=== PATIENT | female | born 1990 | race Caucasian/White ===

== ENCOUNTER → 2018-04-28 | Outpatient (CLI) | payer BC ==
[2018-04-28 14:34] LABS: BASO % 0.3 %; BASO ABS # 0.03 K/uL (0-0.2); EOS % 2.5 %; EOS ABS # 0.23 K/uL (0-0.5); HEMATOCRIT 37.1 % (37-47); HEMOGLOBIN 12.5 g/dL (12.0-16.0); IG# 0.02 K/uL (0.00-0.02); LYMPH % 21.4 %; LYMPH ABS # 1.98 K/uL (1.2-3.4); MEAN CELL VOLUME 81.2 fL (80-100); MEAN CORPUSCULAR HEMOGLOBIN 27.4 pg (25-34); MEAN CORPUSCULAR HGB CONC 33.7 g/dl (32-36); MEAN PLATELET VOLUME 9.3 fL (7.4-10.4); MONO ABS # 0.74 K/uL (0.11-0.59); NEUT % 67.6 %; NEUT ABS # 6.26 K/uL (1.4-6.5); PLATELET COUNT 378 K/uL (130-400); RED CELL DISTRIBUTION WIDTH CV 12.8 % (11.5-14.5); RED CELL DISTRIBUTION WIDTH SD 37.9 fL (36.4-46.3); WHITE BLOOD COUNT 9.26 K/uL (4.8-10.8)
== END | disposition home or self-care (01) ==
LOC: C.LAB1850 12:38
PROVIDERS: ATTEND Obstetrics & Gynecology
DX: Z34.02 Encounter for supervision of normal first pregnancy, second trimester (principal)

== ENCOUNTER → 2018-04-28 | Outpatient (CLI) | payer BC | END | disposition home or self-care (01) | LOC: C.PAPS 14:43 | PROVIDERS: ATTEND Obstetrics & Gynecology | DX: Z34.01 Encounter for supervision of normal first pregnancy, first trimester (principal) ==

== ENCOUNTER → 2018-05-14 | Outpatient (CLI) | payer BC | END | disposition home or self-care (01) | LOC: C.LAB1850 15:04 | PROVIDERS: ATTEND Internal Medicine | DX: O02.1 Missed abortion (principal) ==

== ENCOUNTER → 2018-05-14 | Outpatient (CLI) | payer BC | END | disposition home or self-care (01) | LOC: C.PATHSPEC 17:37 | PROVIDERS: ATTEND Obstetrics & Gynecology | DX: O02.1 Missed abortion (principal) ==

== ENCOUNTER 2022-06-11 | Inpatient (IN) ==
[2022-06-11] MEDS ORDERED: OXYTOCIN 30 UNITS/500 ML BAG IV PRN ×2 (08:20)
[2022-06-11] MEDS ORDERED: LIDOCAINE 1% LOCAL 20 ML VIAL INFIL PRN (08:20)
--- NOTE | 2022-06-11 08:29 | History & Physical Report ---
Date of Service June 11, 2022 Assessment & Plan (1) Encounter for induction of labor: Plan: -admit, iv, labs. plan pitocin. fhts categ 1. -Previously elevated BP at last appointment. BP stable on admission. Will order CMP -Rubella equivocal, will get MMR . (2) Post term over 40 weeks: (3) Prior miscarriage with , antepartum: Admission and Anticipated Discharge Date Admission Date: June 11, 2022 History of Present Illness Chief Complaint: induction of labor Primary Care Provider: VLADIMIR PCP 32 y/o 40 weeks confirmed via ultrasound. Presents to L&D with cc of planned induction. Has been attending OB appointments regularly. Was not scheduled for one yesterday. Currently taking ferrous sulfate a vitamin. Contractions: none. Fluid or Blood loss: none Movement: active Labs O+ Blood type - Antibody screen Rubella equivocal - VDRL/RPR - Gonorrhea - Chlamydia (previous + in 2017) - HIV - HbSAg - GBS - Glucose tolerance x 2 Allergies Allergy/AdvReac Type Severity Reaction Status Date / Time No Known Allergies Allergy Verified 06/11/22 08:25 Home Medications Medication Instructions Recorded Confirmed Type prenat.vits,mae,rwx-euil-yjoww 1 tab PO DAILY 11/25/21 06/11/22 History ferrous sulfate 325 mg (65 mg 325 mg PO DAILY 06/06/22 06/11/22 History iron) tablet Zyrtec 1 tab PO DAILY 06/11/22 06/11/22 History Patient History Medical History (Updated 06/11/22 @ 08:47 by Marko Salguero DO) Arthritis in back Chlamydia Depression Varicella vaccination Surgical History No history of previous surgery Family History Grandmother (Maternal) Breast cancer Mother Hypertension Denies family history of Ovarian cancer Colorectal cancer Social History Smoking Status: Former smoker Hx Alcohol Use: No Hx Substance Use: No Preferred Language: Uzbek Bss Solution Architect Required: No Beliefs That Will Affect Care: None marital status: Single marital status details: eron Lucas (30) Current Living Situation: Parent Current Living Situation Comment: lives with mom, dog, cats-wears gloves/mask current occupational status: employed current occupation: [employer] Feels Safe at Home: Yes Safety Concerns: Feels Safe At This Time Review of Systems Denies fever, chills, sweats Denies shortness of breath, difficulty breathing, chest pain, palpitations, chest pressure. Denies breast pain. Denies dysuria. Denies headache or changes in vision. Physical Exam Physical Exam: General: Alert, oriented. No acute distress. Cardiac: Regular rate and rhythm, no murmurs/rubs/gallops. Respiratory: Clear to auscultation bilaterally a/p, no wheezes/rales/rhonchi. No increased work of breathing. Symmetrical chest rise. No respiratory distress. Abdomen: Gravid; FH 40cm Pelvic: Dilation 0.5cm; Effacement 50; Station -[address] Arora Lower Extremities: No lower extremity edema or swelling. No deep calf pain. Sharmin's negative bilaterally Results & Data ([facility]) Vital Signs (Past 12 Hours) Vital Signs Pulse BP 06/11/22 07:57 101 H 133/89 Supervising Physician Co-Signing Physician Notes patient is seen and evaluated groove above findings and plan. Resident Activity Tracking Resident Involvement: Resident Care Provided Care Provided: OB Delivery
[2022-06-11 08:40] LABS: Hematocrit (blood only) 37.8 % (34.1-44.9); Hemoglobin 13.1 g/dl (12.0-16.0); Mean Corpuscular Hemoglobin 29.2 pg (25.0-34.0); Mean Corpuscular Hgb Conc 34.7 g/dL (32.0-36.0); Mean Corpuscular Volume 84.4 fL (80.0-100.0); Mean Platelet Volume 10.6 fL (9.4-12.3); Platelet Count 265 K/uL (130-400); RDW Coefficient of Variation 14.5 % (11.5-14.5); Red Blood Count 4.48 M/uL (3.93-5.22); White Blood Count 10.99 K/ul (4.8-10.8)
[2022-06-11] MEDS: LACTATED RINGER'S 1,000 ML IV PRN ×4 (09:00→23:33)
[2022-06-11 09:10] LABS: Anion Gap 9 (3-11); BUN Creatinine Ratio 14.8 (10-20); Blood Urea Nitrogen 12 mg/dl (6-23); Calcium 9.7 mg/dl (8.5-10.1); Carbon Dioxide 23 mmol/L (21-32); Chloride 101 mmol/L (98-107); Est GFR (African American) 110.6 ml/min; Est GFR (Non-African American) 95.4 ml/min; Glucose 74 mg/dl (70-99(Fasting)); Potassium 3.8 mmol/L (3.5-5.1); Sodium 133 mmol/L (136-145)
[2022-06-11 09:21] LABS: Alanine Aminotransferase 132 U/L (7-52); Albumin Globulin Ratio 1.2 (0.9-2); Albumin Level 3.7 gm/dl (3.4-5.0); Aspartate Aminotransferase 101 U/L (13-39); Bilirubin,Total 0.4 mg/dl (0.2-1.0); Total Protein 6.7 gm/dl (6.0-8.3)
[2022-06-11 09:33] LABS: Alkaline Phosphatase 148 U/L (34-104)
[2022-06-11] MEDS ORDERED: CALCIUM CARBONATE 500 MG CHEWABLE TAB PO PRN (13:00)
[2022-06-11] MEDS ORDERED: ONDANSETRON INJ 2 MG/ML 2 ML VIAL IV PRN ×2 (13:00→13:20)
[2022-06-11] MEDS ORDERED: FAMOTIDINE 20 MG in SYRINGE 3 ML IV ONE (13:01)
[2022-06-11] MEDS ORDERED: MAG SULFATE 6GM BOLUS FROM BAG IV ONE (13:02)
[2022-06-11] MEDS ORDERED: SODIUM CHLORIDE 0.9% INJ 10 ML VIAL ONE (13:13)
[2022-06-11] MEDS ORDERED: fentaNYL citrate 100 MCG/2 ML VIAL ONE (13:13)
[2022-06-11] MEDS ORDERED: ePHEDrine sulfate 50 MG/ML AMP ONE (13:13)
[2022-06-11] MEDS ORDERED: fentaNYL 2MCG/ML ROPIVACAINE 1.25MG/ML 100 ML BAG EPI ONE (13:14)
[2022-06-11] MEDS ORDERED: LIDOCAINE 2%/EPINEPHRINE 1:200,000 20 ML SDV ONE (13:14)
[2022-06-11] MEDS ORDERED: BUPIVACAINE 0.25% 30 ML VIAL ONE (13:14)
--- NOTE | 2022-06-11 13:15 | Labor Progress Brief Note ---
Date of Service June 11, 2022 Subjective Reason For Note: Routine Evaluation patient denying any preeclampsia symptoms Assessment & Plan (1) Encounter for induction of labor: Plan: patient doing well. denies preeclampsia symptoms. Blood pressure is noted to be elevated in the upper limit of the mild range. Liver enzymes are mildly elevated and patient would meet criteria for severe preeclampsia. Discussed diagnosis with patient today discussed the recommendation for magnesium for seizure prophylaxis. Will continue to monitor blood pressures for and treat as indicated. Patient progressed well Labor and will proceed with epidural. Category 1 tracing noted (2) Post term over 40 weeks: (3) Prior miscarriage with , antepartum: (4) Severe pre-eclampsia: Admission and Anticipated Discharge Date Admission Date: June 11, 2022 Physical Exam Genitourinary: Manual OB Exam: + cervical dilation (4.5), + cervical effacement 80%, + station -1 and + amniotic fluid meconium OB Exam Monitor Tracing: + external FHT monitor used, + external uterine monitor used, + category I and + normal FHT variability; no late decelerations present and no variable decelerations Results & Data ([facility]) Vital Signs (Past 12 Hours) Vital Signs Temp Pulse Resp BP 06/11/22 08:35 36.7 C 101 H 18 133/89 06/11/22 12:54 66 158/86 H 06/11/22 12:47 84 154/93 H 06/11/22 12:36 67 162/96 H 06/11/22 11:32 18 06/11/22 11:32 37.3 C 18 06/11/22 11:33 75 140/91 06/11/22 11:00 68 124/70 06/11/22 10:06 18 06/11/22 10:06 37.3 C 18 06/11/22 07:56 18 06/11/22 07:56 36.9 C 18 06/11/22 09:00 18 06/11/22 09:00 37.1 C 18 06/11/22 10:07 75 129/78 06/11/22 07:57 101 H 133/89 Coding Level of Care Code None Diagnoses Encounter for induction of labor Z34.90 Post term over 40 weeks O48.0 Prior miscarriage with , antepartum O09.299 Severe pre-eclampsia O14.10
[2022-06-11] MEDS ORDERED: NALOXONE HCL 0.4 MG/1 ML VIAL/CARP IV PRN (13:20)
[2022-06-11] MEDS ORDERED: NALBUPHINE HCL INJ 10 MG/ML AMP IV PRN (13:20)
[2022-06-11] MEDS ORDERED: ePHEDrine sulfate 50 MG/ML AMP IV PRN (13:20)
[2022-06-11] MEDS ORDERED: diphenhydrAMINE 50 MG/ML VIAL IV PRN (13:20)
[2022-06-11] MEDS ORDERED: NALOXONE HCL 1 MG in SODIUM CHLORIDE 0.9% 1000ML 1,000 ML IV PRN (13:20)
--- NOTE | 2022-06-11 13:22 | Anesthesiology Consultation ---
Date of Service June 11, 2022 Assessment & Plan ASA ASA3 Proposed Anesthesia Anesthesia Type: Labor Epidural Risk / Benefits Reviewed With: PT / POA / Parent / Guardian, Accepts Plan and Informed Consent Obtained Additional Comments: preeclampcia on mag History Height/Weight Height: 5 ft 5 in Weight: 102.512 kg Allergies Allergy/AdvReac Type Severity Reaction Status Date / Time No Known Allergies Allergy Verified 06/11/22 08:25 Medications Home Medications Medication Instructions Recorded Confirmed Last Taken prenat.vits,mae,tuj-nfqm-qipcp 1 tab PO DAILY 11/25/21 06/11/22 06/11/22 06:00 ferrous sulfate 325 mg (65 mg 325 mg PO DAILY 06/06/22 06/11/22 06/10/22 21:00 iron) tablet Zyrtec 1 tab PO DAILY 06/11/22 06/11/22 06/10/22 21:00 Active Medications Generic Name Dose Route Start Last Admin Trade Name Freq PRN Reason Stop Dose Admin Calcium Carbonate 1,500 mg 06/11/22 13:00 06/11/22 13:20 Calcium Carbonate 500 Mg Chewable Tab PO 07/11/22 12:59 1,500 mg BID PRN Administration Indigestion Lactated Ringer's 1,000 mls @ 125 mls/hr 06/11/22 08:20 06/11/22 09:00 Lr IV 06/13/22 08:19 125 mls/hr .Q8H PRN Administration L&D Protocol Protocol Oxytocin 30 units in 500 mls @ 16 mls/hr 06/11/22 08:20 06/11/22 13:00 Pitocin IV 06/13/22 08:19 0.96 units/hr .Q24H PRN 16 mls/hr Labor Induction/Augmentation Titration Protocol 0.96 UNITS/HR Magnesium Sulfate 40 gm in 1,000 mls @ 50 mls/hr 06/11/22 13:15 06/11/22 13:50 Magnesium Sulfate / Wtr IV 07/11/22 13:14 50 mls/hr .Q20H MISAEL Administration Ondansetron HCl 4 mg 06/11/22 13:00 06/11/22 13:23 Ondansetron Inj 2 Mg/Ml 2 Ml Vial IV 07/11/22 12:59 4 mg Q4H PRN Administration Nausea Past Medical History Medical History (Updated 06/11/22 @ 13:15 by Shaka Nath MD) Arthritis in back Chlamydia Depression Varicella vaccination Exercise / Class Metabolic Activity II 4-5 Yardwork/Stairs/Walk up hill Past Family History Family History Grandmother (Maternal) Breast cancer Mother Hypertension Denies family history of Ovarian cancer Colorectal cancer Past Surgical History Surgical History No history of previous surgery Past Anesthesia History No Hx of Anesthesia Complications and No Family Hx of Anesthesia Complications History of PONV No Hx of PONV and No Hx of Motion Sickness Social History Smoking Status: Former smoker Hx Alcohol Use: No Hx Substance Use: No substance use type: does not use Review of Systems denies fever/cough/ colds/ chest pain/ SOB/ EVERARDO denies EVERARDO Physical Exam Vital Signs Last Vital Signs Temp 37.3 C 06/11/22 11:32 Pulse 92 H 06/11/22 13:52 Resp 18 06/11/22 11:32 BP 99/53 L 06/11/22 13:50 Pulse Ox 97 06/11/22 13:52 ENMT Mouth: no TMJ abnormality and no dentition abnormality Thyromental Distance: > or= 3.5 Finger Breadths Mallampati Class: II Neck neck extension not limited Respiratory normal respiratory effort; no respiratory distress Auscultation: lungs clear to auscultation bilaterally Cardiovascular Rate/Rhythm: regular rate and regular rhythm Neurologic moves all extremities Psychiatric Orientation: alert and oriented x 3 Testing Laboratory Results 06/11/22 08:27 06/11/22 08:27
[2022-06-11] MEDS: MAGNESIUM SULFATE / WTR 40 GM/1,000 ML BAG IV SCH (13:50)
--- NOTE | 2022-06-11 16:13 | Labor Progress Brief Note ---
Date of Service June 11, 2022 Subjective Presented to bedside for evaluation secondary recurrent late deceleration. good variability still noted. multiple resuscitation measures have been implemented including repositioning, decreasing Pitocin and IV fluid bolus. Continued late decelerations still noted. Assessment & Plan (1) Severe pre-eclampsia: Plan: recurrent late decelerations noted with minimal cervical change. moderate heart rate variability noted. Other resuscitation measures unsuccessful. Discontinued Pitocin and will continue to monitor. (2) Encounter for induction of labor: (3) Post term over 40 weeks: Admission and Anticipated Discharge Date Admission Date: June 11, 2022 Physical Exam Genitourinary: Manual OB Exam: + cervical dilation 5 cm, + cervical effacement 80%, + station -1 and + amniotic fluid meconium OB Exam Monitor Tracing: + external FHT monitor used, + external uterine monitor used, + category II, + normal FHT variability and + late decelerations present Results & Data ([facility]) Vital Signs (Past 12 Hours) Vital Signs Temp Pulse Resp BP Pulse Ox 06/11/22 15:20 16 06/11/22 14:20 16 06/11/22 13:20 18 06/11/22 08:35 36.7 C 101 H 18 133/89 06/11/22 15:59 79 140/88 06/11/22 15:57 90 99 06/11/22 15:56 111 H 92 06/11/22 15:52 86 98 06/11/22 15:47 80 99 06/11/22 15:44 86 137/72 06/11/22 15:42 83 99 06/11/22 15:37 86 99 06/11/22 15:32 86 99 06/11/22 15:29 78 140/71 06/11/22 15:27 86 99 06/11/22 15:22 84 99 06/11/22 15:17 92 H 99 06/11/22 15:14 102 H 122/56 L 06/11/22 15:12 109 H 99 06/11/22 15:07 98 H 99 06/11/22 15:02 103 H 99 06/11/22 14:59 101 H 139/81 06/11/22 14:57 105 H 100 06/11/22 14:52 107 H 100 06/11/22 14:47 103 H 100 06/11/22 14:45 96 H 134/75 06/11/22 14:42 92 H 96 06/11/22 14:37 101 H 97 06/11/22 14:32 102 H 99 06/11/22 14:28 88 110/59 L 06/11/22 14:27 89 96 06/11/22 14:25 90 103/58 L 06/11/22 14:22 89 95 06/11/22 14:21 86 106/57 L 06/11/22 14:20 83 94 06/11/22 14:17 95 H 97 06/11/22 14:16 37.3 C 93 H 16 109/58 L 06/11/22 14:12 97 H 98 06/11/22 14:11 90 106/59 L 06/11/22 14:07 89 115/57 L 96 06/11/22 14:02 98 06/11/22 14:02 90 06/11/22 14:02 93 H 123/62 06/11/22 13:58 82 94 06/11/22 13:57 95 06/11/22 13:57 83 06/11/22 13:57 85 112/58 L 06/11/22 13:52 92 H 97 06/11/22 13:50 86 99/53 L 06/11/22 13:49 87 101/53 L 06/11/22 13:47 87 98/54 L 98 06/11/22 13:48 82 98/50 L 06/11/22 13:42 102 H 97 06/11/22 13:39 103 H 91/54 L 06/11/22 13:37 94 H 97 06/11/22 13:36 101 H 132/74 06/11/22 13:32 99 H 97 06/11/22 13:30 99 H 117/75 06/11/22 13:27 109 H 99 06/11/22 12:54 66 158/86 H 06/11/22 12:47 84 154/93 H 06/11/22 12:36 67 162/96 H 06/11/22 11:32 18 06/11/22 11:32 37.3 C 18 06/11/22 11:33 75 140/91 06/11/22 11:00 68 124/70 06/11/22 10:06 18 06/11/22 10:06 37.3 C 18 06/11/22 07:56 18 06/11/22 07:56 36.9 C 06/11/22 09:00 18 06/11/22 09:00 37.1 C 06/11/22 10:07 75 129/78 06/11/22 07:57 101 H 133/89 Coding Level of Care Code None Diagnoses Severe pre-eclampsia O14.10 Encounter for induction of labor Z34.90 Post term over 40 weeks O48.0
[2022-06-11] MEDS ORDERED: LABETALOL HCL IV 5 MG/ML 20ML IV STA (17:56)
[2022-06-11 18:21] LABS: Hematocrit (blood only) 40.4 % (34.1-44.9); Hemoglobin 13.7 g/dl (12.0-16.0); Mean Corpuscular Hemoglobin 28.7 pg (25.0-34.0); Mean Corpuscular Hgb Conc 33.9 g/dL (32.0-36.0); Mean Corpuscular Volume 84.7 fL (80.0-100.0); Mean Platelet Volume 10.6 fL (9.4-12.3); Platelet Count 284 K/uL (130-400); RDW Coefficient of Variation 14.4 % (11.5-14.5); Red Blood Count 4.77 M/uL (3.93-5.22); White Blood Count 18.88 K/ul (4.8-10.8)
[2022-06-11 18:47] LABS: Albumin Globulin Ratio 1.2 (0.9-2); Albumin Level 3.7 gm/dl (3.4-5.0); BUN Creatinine Ratio 13.5 (10-20); Bilirubin,Total 0.5 mg/dl (0.2-1.0); Calcium 9.4 mg/dl (8.5-10.1); Creatinine Clr Calc Pharmacy 106.7 ml/min; Est GFR (African American) 98.7 ml/min; Est GFR (Non-African American) 85.2 ml/min; Globulin 3.2 gm/dl (2.5-4.0); Magnesium Therapeutic L&D Only 4.9 mg/dL (4.0-8.0); Potassium 4.1 mmol/L (3.5-5.1); Total Protein 6.9 gm/dl (6.0-8.3)
[2022-06-11] MEDS: fentaNYL 2MCG/ML ROPIVACAINE 1.25MG/ML 100 ML BAG EPI PRN (20:50)
[2022-06-11] MEDS ORDERED: NURSING L&D Epidural Breakthrough Pain Update ONE (21:59)
--- NOTE | 2022-06-11 22:03 | Labor Progress Brief Note ---
Date of Service June 11, 2022 Subjective Reason For Note: Routine Evaluation Assessment & Plan (1) Severe pre-eclampsia: Plan: Pitocin restarted around 6:30 p.m.. Slight cervical change noted. IUPC placed. monitoring category 1. Will continue to monitor. Blood pressures back within normal range. Preeclampsia labs stable compared to prior evaluation. (2) Encounter for induction of labor: (3) Post term over 40 weeks: Admission and Anticipated Discharge Date Admission Date: June 11, 2022 Physical Exam Genitourinary: Manual OB Exam: + cervical dilation 6 cm, + cervical effacement 80%, + station 0 and + amniotic fluid meconium OB Exam Monitor Tracing: + external FHT monitor used, + external uterine monitor used, + category I and + normal FHT variability; no early decelerations present, no late decelerations present and no variable decelerations IUPC placed Results & Data ([facility]) Vital Signs (Past 12 Hours) Vital Signs Temp Pulse Resp BP Pulse Ox 06/11/22 17:20 18 06/11/22 18:20 16 06/11/22 16:20 16 06/11/22 15:20 16 06/11/22 14:20 16 06/11/22 13:20 18 06/11/22 21:59 87 135/68 06/11/22 21:55 96 H 100 06/11/22 21:50 99 H 100 06/11/22 21:45 89 06/11/22 21:44 89 131/66 06/11/22 21:40 88 100 06/11/22 21:15 16 06/11/22 21:15 36.7 C 16 06/11/22 21:35 93 H 100 06/11/22 21:30 97 H 100 06/11/22 21:29 91 H 140/85 06/11/22 21:25 99 H 100 06/11/22 21:20 88 100 06/11/22 21:15 100 06/11/22 21:15 86 06/11/22 21:15 86 126/64 06/11/22 21:10 91 H 100 06/11/22 21:05 78 100 06/11/22 21:00 88 18 06/11/22 20:59 81 133/70 06/11/22 20:55 83 100 06/11/22 20:50 89 100 06/11/22 20:45 100 06/11/22 20:45 81 06/11/22 20:45 81 133/71 06/11/22 20:40 82 100 06/11/22 20:35 81 100 06/11/22 20:30 86 100 06/11/22 20:29 85 122/68 06/11/22 20:25 84 100 06/11/22 20:20 77 100 06/11/22 20:15 89 100 06/11/22 20:14 75 128/64 06/11/22 20:10 79 100 06/11/22 20:05 70 100 06/11/22 20:00 81 16 128/68 100 06/11/22 19:55 79 100 06/11/22 19:50 85 100 06/11/22 19:45 91 H 100 06/11/22 19:44 78 118/65 06/11/22 19:40 85 100 06/11/22 19:35 87 100 06/11/22 19:30 83 123/62 100 06/11/22 19:25 93 H 100 06/11/22 19:20 94 H 100 06/11/22 19:13 36.5 C 99 H 18 142/86 H 06/11/22 19:12 92 H 98 06/11/22 19:07 94 H 98 06/11/22 19:02 87 96 06/11/22 18:57 85 96 06/11/22 18:58 90 135/82 06/11/22 18:56 89 94 06/11/22 18:52 88 96 06/11/22 18:50 88 94 06/11/22 18:47 87 96 06/11/22 18:20 16 06/11/22 18:20 36.7 C 16 06/11/22 18:20 18 06/11/22 18:20 36.7 C 18 06/11/22 18:43 88 137/83 06/11/22 18:42 95 H 97 06/11/22 18:37 98 H 97 06/11/22 18:32 92 H 96 06/11/22 18:29 91 H 128/80 94 06/11/22 18:27 92 H 96 06/11/22 18:22 96 H 97 06/11/22 18:17 107 H 97 06/11/22 18:13 102 H 161/90 H 06/11/22 18:12 126 H 99 06/11/22 18:07 111 H 98 06/11/22 18:02 106 H 98 06/11/22 17:59 109 H 173/86 H 06/11/22 17:57 101 H 96 06/11/22 17:20 18 06/11/22 17:20 37.1 C 18 06/11/22 17:52 97 H 97 06/11/22 17:47 104 H 98 06/11/22 17:46 101 H 177/86 H 06/11/22 17:44 108 H 184/96 H 06/11/22 17:42 102 H 98 06/11/22 17:37 100 H 99 06/11/22 17:32 103 H 99 06/11/22 17:29 93 H 06/11/22 17:29 159/84 H 06/11/22 17:29 100 H 165/88 H 06/11/22 17:27 105 H 99 06/11/22 17:22 82 97 06/11/22 17:17 92 H 99 06/11/22 17:16 93 H 160/87 H 06/11/22 17:12 88 98 06/11/22 17:07 92 H 99 06/11/22 17:02 96 H 99 06/11/22 16:59 90 143/83 H 06/11/22 16:57 87 97 06/11/22 16:52 96 H 97 06/11/22 16:47 89 98 06/11/22 16:44 78 145/77 H 06/11/22 16:42 79 97 06/11/22 16:37 83 97 06/11/22 16:32 70 97 06/11/22 16:29 98 H 145/76 H 06/11/22 16:27 74 97 06/11/22 16:22 74 97 06/11/22 16:20 16 06/11/22 16:20 37.1 C 16 06/11/22 16:17 92 H 99 06/11/22 16:14 78 140/72 06/11/22 16:12 88 100 06/11/22 16:07 72 100 06/11/22 16:02 78 100 06/11/22 15:59 79 140/88 06/11/22 15:57 90 99 06/11/22 15:56 111 H 92 06/11/22 15:52 86 98 06/11/22 15:47 80 99 06/11/22 15:44 86 137/72 06/11/22 15:42 83 99 06/11/22 15:37 86 99 06/11/22 15:32 86 99 06/11/22 15:29 78 140/71 06/11/22 15:27 86 99 06/11/22 15:22 84 99 06/11/22 15:17 92 H 99 06/11/22 15:14 102 H 122/56 L 06/11/22 15:12 109 H 99 06/11/22 15:07 98 H 99 06/11/22 15:02 103 H 99 06/11/22 14:59 101 H 139/81 06/11/22 14:57 105 H 100 06/11/22 14:52 107 H 100 06/11/22 14:47 103 H 100 06/11/22 14:45 96 H 134/75 06/11/22 14:42 92 H 96 06/11/22 14:37 101 H 97 06/11/22 14:32 102 H 99 06/11/22 14:28 88 110/59 L 06/11/22 14:27 89 96 06/11/22 14:25 90 103/58 L 06/11/22 14:22 89 95 06/11/22 14:21 86 106/57 L 06/11/22 14:20 83 94 06/11/22 14:17 95 H 97 06/11/22 14:16 37.3 C 93 H 16 109/58 L 06/11/22 14:12 97 H 98 06/11/22 14:11 90 106/59 L 06/11/22 14:07 89 115/57 L 96 06/11/22 14:02 98 06/11/22 14:02 90 06/11/22 14:02 93 H 123/62 06/11/22 13:58 82 94 06/11/22 13:57 95 06/11/22 13:57 83 06/11/22 13:57 85 112/58 L 06/11/22 13:52 92 H 97 06/11/22 13:50 86 99/53 L 06/11/22 13:49 87 101/53 L 06/11/22 13:47 87 98/54 L 98 06/11/22 13:48 82 98/50 L 06/11/22 13:42 102 H 97 06/11/22 13:39 103 H 91/54 L 06/11/22 13:37 94 H 97 06/11/22 13:36 101 H 132/74 06/11/22 13:32 99 H 97 06/11/22 13:30 99 H 117/75 06/11/22 13:27 109 H 99 06/11/22 12:54 66 158/86 H 06/11/22 12:47 84 154/93 H 06/11/22 12:36 67 162/96 H 06/11/22 11:32 18 06/11/22 11:32 37.3 C 18 06/11/22 11:33 75 140/91 06/11/22 11:00 68 124/70 06/11/22 10:06 18 06/11/22 10:06 37.3 C 06/11/22 10:07 75 129/78 Coding Level of Care Code None Diagnoses Severe pre-eclampsia O14.10 Encounter for induction of labor Z34.90 Post term over 40 weeks O48.0
[2022-06-12] MEDS: fentaNYL 2MCG/ML ROPIVACAINE 1.25MG/ML 100 ML BAG EPI PRN (01:41)
--- NOTE | 2022-06-12 01:46 | Labor Progress Brief Note ---
Date of Service June 12, 2022 Subjective Reason For Note: Routine Evaluation Assessment & Plan (1) Severe pre-eclampsia: Plan: Complete. Cat 1. (2) Encounter for induction of labor: (3) Post term over 40 weeks: Admission and Anticipated Discharge Date Admission Date: June 11, 2022 Physical Exam Genitourinary: Manual OB Exam: + cervical dilation 10 cm, + cervical effacement 100%, + station + 2 and + amniotic fluid meconium OB Exam Monitor Tracing: + external FHT monitor used, + external uterine monitor used, + category I, + normal FHT variability and + early decelerations present; no late decelerations present and no variable decelerations Results & Data ([facility]) Vital Signs (Past 12 Hours) Vital Signs Temp Pulse Resp BP Pulse Ox O2 Del Method 06/12/22 01:07 18 06/12/22 00:02 16 06/11/22 23:03 18 06/11/22 23:03 36.8 C 18 06/11/22 23:03 Room Air 06/11/22 22:10 18 06/11/22 17:20 18 06/11/22 18:20 16 06/11/22 16:20 16 06/11/22 15:20 16 06/11/22 14:20 16 06/12/22 01:40 98 H 100 06/12/22 01:35 87 100 06/12/22 01:30 94 H 100 06/12/22 01:29 86 136/68 06/12/22 01:25 81 100 06/12/22 01:20 92 H 100 06/12/22 01:15 95 H 100 06/12/22 01:14 83 133/66 06/12/22 01:10 82 100 06/12/22 01:05 89 100 06/12/22 01:00 82 18 100 06/12/22 00:59 86 132/69 06/12/22 00:55 84 100 06/12/22 00:50 90 100 06/12/22 00:45 98 H 100 06/12/22 00:44 88 121/64 06/12/22 00:40 83 100 06/12/22 00:35 93 H 100 06/12/22 00:30 36.7 C 103 H 18 100 06/12/22 00:28 90 121/68 06/12/22 00:25 93 H 99 06/12/22 00:20 107 H 99 06/12/22 00:15 98 H 99 06/12/22 00:14 96 H 127/72 06/12/22 00:10 106 H 99 06/12/22 00:05 97 H 99 06/12/22 00:00 96 H 16 97 06/11/22 23:59 105 H 126/74 06/11/22 23:55 98 H 98 06/11/22 23:50 102 H 98 06/11/22 23:45 102 H 100 06/11/22 23:44 100 H 120/69 06/11/22 23:40 105 H 99 06/11/22 23:35 95 H 99 06/11/22 23:30 94 H 18 130/73 98 06/11/22 23:25 94 H 98 06/11/22 23:20 104 H 99 06/11/22 23:15 104 H 131/72 99 06/11/22 23:10 99 H 100 06/11/22 23:05 102 H 99 06/11/22 23:00 36.8 C 102 H 18 100 06/11/22 22:59 101 H 128/66 06/11/22 22:55 107 H 99 06/11/22 22:50 107 H 99 06/11/22 22:45 100 H 100 06/11/22 22:44 94 H 125/64 06/11/22 22:40 98 H 99 06/11/22 22:35 94 H 100 06/11/22 22:30 96 H 100 06/11/22 22:29 94 H 137/72 06/11/22 22:25 106 H 100 06/11/22 22:20 94 H 100 06/11/22 22:15 95 H 100 06/11/22 22:14 91 H 124/58 L 06/11/22 22:10 97 H 99 06/11/22 22:05 97 H 99 06/11/22 22:00 84 100 06/11/22 21:59 87 135/68 06/11/22 21:55 96 H 100 06/11/22 21:50 99 H 100 06/11/22 21:45 89 100 06/11/22 21:44 89 131/66 06/11/22 21:40 88 100 06/11/22 21:15 16 09/07/22 21:15 36.7 C 16 06/11/22 21:35 93 H 100 06/11/22 21:30 97 H 100 06/11/22 21:29 91 H 140/85 06/11/22 21:25 99 H 100 06/11/22 21:20 88 100 06/11/22 21:15 100 06/11/22 21:15 86 06/11/22 21:15 86 126/64 06/11/22 21:10 91 H 100 06/11/22 21:05 78 100 06/11/22 21:00 88 18 100 06/11/22 20:59 81 133/70 06/11/22 20:55 83 100 06/11/22 20:50 89 100 06/11/22 20:45 100 06/11/22 20:45 81 06/11/22 20:45 81 133/71 06/11/22 20:40 82 100 06/11/22 20:35 81 100 06/11/22 20:30 86 100 06/11/22 20:29 85 122/68 06/11/22 20:25 84 100 06/11/22 20:20 77 100 06/11/22 20:15 89 100 06/11/22 20:14 75 128/64 06/11/22 20:10 79 100 06/11/22 20:05 70 100 06/11/22 20:00 81 16 128/68 100 06/11/22 19:55 79 100 06/11/22 19:50 85 100 06/11/22 19:45 91 H 100 06/11/22 19:44 78 118/65 06/11/22 19:40 85 100 06/11/22 19:35 87 100 06/11/22 19:30 83 123/62 100 06/11/22 19:25 93 H 100 06/11/22 19:20 94 H 100 06/11/22 19:13 36.5 C 99 H 18 142/86 H 06/11/22 19:12 92 H 98 06/11/22 19:07 94 H 98 06/11/22 19:02 87 96 06/11/22 18:57 85 96 06/11/22 18:58 90 135/82 06/11/22 18:56 89 94 06/11/22 18:52 88 96 06/11/22 18:50 88 94 06/11/22 18:47 87 96 06/11/22 18:20 16 06/11/22 18:20 36.7 C 16 06/11/22 18:20 18 06/11/22 18:20 36.7 C 18 06/11/22 18:43 88 137/83 06/11/22 18:42 95 H 97 06/11/22 18:37 98 H 97 06/11/22 18:32 92 H 96 06/11/22 18:29 91 H 128/80 94 06/11/22 18:27 92 H 96 06/11/22 18:22 96 H 97 06/11/22 18:17 107 H 97 06/11/22 18:13 102 H 161/90 H 06/11/22 18:12 126 H 99 06/11/22 18:07 111 H 98 06/11/22 18:02 106 H 98 06/11/22 17:59 109 H 173/86 H 06/11/22 17:57 101 H 96 06/11/22 17:20 18 06/11/22 17:20 37.1 C 18 06/11/22 17:52 97 H 97 06/11/22 17:47 104 H 98 06/11/22 17:46 101 H 177/86 H 06/11/22 17:44 108 H 184/96 H 06/11/22 17:42 102 H 98 06/11/22 17:37 100 H 99 06/11/22 17:32 103 H 99 06/11/22 17:29 93 H 06/11/22 17:29 159/84 H 06/11/22 17:29 100 H 165/88 H 06/11/22 17:27 105 H 99 06/11/22 17:22 82 97 06/11/22 17:17 92 H 99 06/11/22 17:16 93 H 160/87 H 06/11/22 17:12 88 98 06/11/22 17:07 92 H 99 06/11/22 17:02 96 H 99 06/11/22 16:59 90 143/83 H 06/11/22 16:57 87 97 06/11/22 16:52 96 H 97 06/11/22 16:47 89 98 06/11/22 16:44 78 145/77 H 06/11/22 16:42 79 97 06/11/22 16:37 83 97 06/11/22 16:32 70 97 06/11/22 16:29 98 H 145/76 H 06/11/22 16:27 74 97 06/11/22 16:22 74 97 06/11/22 16:20 16 06/11/22 16:20 37.1 C 16 06/11/22 16:17 92 H 99 06/11/22 16:14 78 140/72 06/11/22 16:12 88 100 06/11/22 16:07 72 100 06/11/22 16:02 78 100 06/11/22 15:59 79 140/88 06/11/22 15:57 90 99 06/11/22 15:56 111 H 92 06/11/22 15:52 86 98 06/11/22 15:47 80 99 06/11/22 15:44 86 137/72 06/11/22 15:42 83 99 06/11/22 15:37 86 99 06/11/22 15:32 86 99 06/11/22 15:29 78 140/71 06/11/22 15:27 86 99 06/11/22 15:22 84 99 06/11/22 15:17 92 H 99 06/11/22 15:14 102 H 122/56 L 06/11/22 15:12 109 H 99 06/11/22 15:07 98 H 99 06/11/22 15:02 103 H 99 06/11/22 14:59 101 H 139/81 06/11/22 14:57 105 H 100 06/11/22 14:52 107 H 100 06/11/22 14:47 103 H 100 06/11/22 14:45 96 H 134/75 06/11/22 14:42 92 H 96 06/11/22 14:37 101 H 97 06/11/22 14:32 102 H 99 06/11/22 14:28 88 110/59 L 06/11/22 14:27 89 96 06/11/22 14:25 90 103/58 L 06/11/22 14:22 89 95 06/11/22 14:21 86 106/57 L 06/11/22 14:20 83 94 06/11/22 14:17 95 H 97 06/11/22 14:16 37.3 C 93 H 16 109/58 L 06/11/22 14:12 97 H 98 06/11/22 14:11 90 106/59 L 06/11/22 14:07 89 115/57 L 96 06/11/22 14:02 98 06/11/22 14:02 90 06/11/22 14:02 93 H 123/62 06/11/22 13:58 82 94 06/11/22 13:57 95 06/11/22 13:57 83 06/11/22 13:57 85 112/58 L 06/11/22 13:52 92 H 97 06/11/22 13:50 86 99/53 L 06/11/22 13:49 87 101/53 L 06/11/22 13:47 87 98/54 L 98 06/11/22 13:48 82 98/50 L Coding Level of Care Code None Diagnoses Severe pre-eclampsia O14.10 Encounter for induction of labor Z34.90 Post term over 40 weeks O48.0
[2022-06-12] MEDS ORDERED: miSOPROStoL 200 MCG TAB ONE (05:22)
[2022-06-12] MEDS ORDERED: DIPHTHERIA/TETANUS/PERTUSSIS 0.5 ML SYR/VIAL IM ONE (05:41)
[2022-06-12] MEDS ORDERED: HYDROCORTISONE ACETATE 25 MG SUPP PR PRN (05:41)
[2022-06-12] MEDS ORDERED: OXYTOCIN 30 UNITS/500 ML BAG IV PRN (05:41)
[2022-06-12] MEDS ORDERED: ACETAMINOPHEN 325 MG TAB PO PRN (05:41)
[2022-06-12] MEDS ORDERED: BENZOCAINE 20% AER SPR 82.5 GM CAN EXT PRN (05:41)
[2022-06-12] MEDS ORDERED: miSOPROStoL 200 MCG TAB PR ONE (05:41)
[2022-06-12 06:08] LABS: Hematocrit (blood only) 34.2 % (34.1-44.9); Hemoglobin 11.8 g/dl (12.0-16.0); Mean Corpuscular Hemoglobin 28.5 pg (25.0-34.0); Mean Corpuscular Hgb Conc 34.5 g/dL (32.0-36.0); Mean Corpuscular Volume 82.6 fL (80.0-100.0); Mean Platelet Volume 10.5 fL (9.4-12.3); Platelet Count 254 K/uL (130-400); RDW Coefficient of Variation 14.6 % (11.5-14.5); RDW Standard Deviation 43.8 fL (36.4-46.3); Red Blood Count 4.14 M/uL (3.93-5.22); White Blood Count 21.57 K/ul (4.8-10.8)
[2022-06-12 06:32] LABS: Albumin Globulin Ratio 1.3 (0.9-2); Albumin Level 3.3 gm/dl (3.4-5.0); BUN Creatinine Ratio 12.1 (10-20); Bilirubin,Total 0.5 mg/dl (0.2-1.0); Calcium 7.8 mg/dl (8.5-10.1); Creatinine Clr Calc Pharmacy 104.4 ml/min; Est GFR (African American) 96.1 ml/min; Est GFR (Non-African American) 82.9 ml/min; Globulin 2.6 gm/dl (2.5-4.0); Magnesium Therapeutic L&D Only 5.7 mg/dL (4.0-8.0); Potassium 3.9 mmol/L (3.5-5.1); Total Protein 5.9 gm/dl (6.0-8.3)
[2022-06-12] MEDS: MAGNESIUM SULFATE / WTR 40 GM/1,000 ML BAG IV SCH (07:05)
--- NOTE | 2022-06-12 07:40 | Anesthesia Procedure Note ---
Date of Service June 12, 2022 Anesthesia Post Epidural Note Vital Signs Vital Signs: Temp Pulse Resp BP Pulse Ox O2 Del Method 37.1 C 96 H 16 136/76 100 06/12/22 07:05 06/12/22 07:35 06/12/22 07:05 06/12/22 07:09 06/12/22 07:35 06/11/22 23:03 Notes Mental Status: alert / awake / arousable and participated in evaluation Nausea / Vomiting: adequately controlled Pain: adequately controlled Airway Patency, RR, SpO2: stable & adequate BP & HR: stable & adequate Hydration State: stable & adequate Neuraxial Anesthesia: was administered and sensory block is resolving Anesthetic Complications: no major complications apparent Epidural: Removed without complications and With tip intact
[2022-06-12] MEDS: FERROUS SULFATE 325 MG TAB PO SCH (08:06)
[2022-06-12] MEDS: DOCUSATE SODIUM 100 MG CAP PO SCH ×2 (08:06→20:50)
[2022-06-12] MEDS: PRENATAL VITAMIN 1 TAB PO SCH (08:06)
[2022-06-12] MEDS ORDERED: CETIRIZINE HCL 10 MG TABLET PO ONE (08:59)
[2022-06-12] MEDS ORDERED: MEASLES, MUMPS & RUBELLA VIRUS VIAL SQ ONE (09:01)
[2022-06-12 10:39] LABS: Hematocrit (blood only) 31.5 % (34.1-44.9); Hemoglobin 10.8 g/dl (12.0-16.0); Mean Corpuscular Hemoglobin 28.7 pg (25.0-34.0); Mean Corpuscular Hgb Conc 34.3 g/dL (32.0-36.0); Mean Corpuscular Volume 83.8 fL (80.0-100.0); Mean Platelet Volume 10.6 fL (9.4-12.3); Platelet Count 261 K/uL (130-400); RDW Coefficient of Variation 14.7 % (11.5-14.5); RDW Standard Deviation 44.9 fL (36.4-46.3); Red Blood Count 3.76 M/uL (3.93-5.22); White Blood Count 23.59 K/ul (4.8-10.8)
[2022-06-12] MEDS: LACTATED RINGER'S 1,000 ML IV PRN (11:31)
[2022-06-12 11:36] LABS: Albumin Globulin Ratio 1.3 (0.9-2); Albumin Level 3.1 gm/dl (3.4-5.0); BUN Creatinine Ratio 10.6 (10-20); Bilirubin,Total 0.4 mg/dl (0.2-1.0); Calcium 7.5 mg/dl (8.5-10.1); Creatinine Clr Calc Pharmacy 101.1 ml/min; Est GFR (African American) 92.4 ml/min; Est GFR (Non-African American) 79.7 ml/min; Globulin 2.4 gm/dl (2.5-4.0); Potassium 3.8 mmol/L (3.5-5.1); Total Protein 5.5 gm/dl (6.0-8.3)
[2022-06-12] MEDS: IBUPROFEN 600 MG TAB PO PRN ×2 (13:34→20:50)
[2022-06-12 18:22] LABS: Albumin Globulin Ratio 1.3 (0.9-2); BUN Creatinine Ratio 11.3 (10-20); Bilirubin,Total 0.3 mg/dl (0.2-1.0); Calcium 6.9 mg/dl (8.5-10.1); Creatinine Clr Calc Pharmacy 97.9 ml/min; Est GFR (African American) 88.9 ml/min; Est GFR (Non-African American) 76.7 ml/min; Globulin 2.4 gm/dl (2.5-4.0); Potassium 3.8 mmol/L (3.5-5.1); Total Protein 5.4 gm/dl (6.0-8.3)
[2022-06-13] MEDS: LACTATED RINGER'S 1,000 ML IV PRN (00:03)
[2022-06-13 00:46] LABS: Albumin Globulin Ratio 1.3 (0.9-2); BUN Creatinine Ratio 11.4 (10-20); Bilirubin,Total 0.2 mg/dl (0.2-1.0); Calcium 6.5 mg/dl (8.5-10.1); Creatinine Clr Calc Pharmacy 90.5 ml/min; Est GFR (African American) 80.8 ml/min; Est GFR (Non-African American) 69.7 ml/min; Globulin 2.4 gm/dl (2.5-4.0); Magnesium Therapeutic L&D Only 6.2 mg/dL (4.0-8.0); Potassium 3.5 mmol/L (3.5-5.1); Total Protein 5.4 gm/dl (6.0-8.3)
[2022-06-13] MEDS: MAGNESIUM SULFATE / WTR 40 GM/1,000 ML BAG IV SCH (02:29)
[2022-06-13 07:14] LABS: Hematocrit (blood only) 27.9 % (34.1-44.9); Hemoglobin 9.6 g/dl (12.0-16.0); Mean Corpuscular Hemoglobin 29.7 pg (25.0-34.0); Mean Corpuscular Hgb Conc 34.4 g/dL (32.0-36.0); Mean Corpuscular Volume 86.4 fL (80.0-100.0); Mean Platelet Volume 10.2 fL (9.4-12.3); Platelet Count 216 K/uL (130-400); RDW Coefficient of Variation 15.4 % (11.5-14.5); RDW Standard Deviation 48.3 fL (36.4-46.3); Red Blood Count 3.23 M/uL (3.93-5.22); White Blood Count 14.52 K/ul (4.8-10.8)
--- NOTE | 2022-06-13 07:42 | Obstetrical Progress Note ---
Date of Service <Marko Salguero DO - Last Filed: 06/13/22 07:42> June 13, 2022 Assessment & Plan <Marko Salguero DO - Last Filed: 06/13/22 07:42> (1) Encounter for care and examination after delivery: - Feels well today. Eating well, voiding well, ambulating well. - Pain well controlled with prn pain meds - Routine care -- OOB, ambulation, diet progression as tolerated - After discharge will have 6 week follow-up with Dr. Nath. - Labs are improving besides creatine is slightly rising. Will recheck labs at noon <Tia Lynn MD - Last Filed: 06/13/22 07:59> (1) Encounter for care and examination after delivery: Subjective <Marko Salguero - Last Filed: 06/13/22 07:42> Ambulation: ambulating normally Voiding: no voiding problems Passing Gas:: Yes Diet Tolerance:: regular diet Lochia:: Small Feeding Type:: breast feeding Current Pain Level(1-10): 2 Patient is a 32 y/o female who is now PPD # 1 following spontaneous vaginal delivery + IOP at 40 weeks. Reports feeling well overall this morning. Mild abdominal cramping & pain well managed on analgesics. Voiding well. Tolerating meals overnight and able to ambulate some. Able to pass gas. Has some persistent lochia with some improvement this morning. Currently breast feeding. Review of Systems Denies fever, chills, sweats Denies shortness of breath, difficulty breathing, chest pain, palpitations, chest pressure. Denies breast pain. Denies dysuria. Denies headache or changes in vision. Physical Exam <Marko Salguero - Last Filed: 06/13/22 07:42> General: Alert, oriented. No acute distress. Cardiac: Regular rate and rhythm, no murmurs/rubs/gallops. Respiratory: Clear to auscultation bilaterally a/p, no wheezes/rales/rhonchi. No increased work of breathing. Symmetrical chest rise. No respiratory distress. Abdomen: Soft, nontender, nondistended. Bowel sounds present. Uterus: Uterine fundus firm, palpable below umbilicus. Lower Extremities: No lower extremity edema or swelling. No deep calf pain. Sharmin's negative bilaterally. Results & Data ([facility]) <Marko Salguero, DO - Last Filed: 06/13/22 07:42> Vital Signs (Past 12 Hours) Vital Signs Temp Pulse Resp BP Pulse Ox 06/13/22 05:15 18 06/13/22 04:01 18 06/13/22 00:01 18 06/12/22 20:22 18 06/13/22 05:29 74 107/63 06/13/22 05:21 82 99 06/13/22 05:16 79 98 06/13/22 05:11 87 99 06/13/22 05:06 74 98 06/13/22 05:01 74 97 06/13/22 04:56 83 98 06/13/22 04:51 82 99 06/13/22 04:46 84 98 06/13/22 04:41 85 98 06/13/22 04:36 86 97 06/13/22 04:31 77 97 06/13/22 04:26 80 97 06/13/22 04:21 79 98 06/13/22 04:16 79 97 06/13/22 04:11 79 98 06/13/22 04:06 92 H 98 06/13/22 04:01 36.9 C 86 18 107/60 98 06/13/22 03:56 89 97 06/13/22 03:51 86 97 06/13/22 03:46 90 97 06/13/22 03:41 90 97 06/13/22 03:36 87 98 06/13/22 03:31 91 H 98 06/13/22 03:26 83 98 06/13/22 03:21 85 97 06/13/22 03:16 81 99 06/13/22 03:11 81 98 06/13/22 03:06 84 100 06/13/22 03:01 80 99 06/13/22 02:56 83 98 06/13/22 02:51 90 99 06/13/22 02:46 83 98 06/13/22 02:41 81 100 06/13/22 02:36 77 100 06/13/22 02:31 88 99 06/13/22 02:26 85 100 06/13/22 02:21 77 99 06/13/22 02:16 73 99 06/13/22 02:11 69 97 06/13/22 02:06 67 98 06/13/22 02:01 69 97 06/13/22 01:56 70 97 06/13/22 01:51 68 98 06/13/22 01:46 67 97 06/13/22 01:41 67 98 06/13/22 01:36 69 97 06/13/22 01:31 71 98 06/13/22 01:26 72 98 06/13/22 01:21 73 98 06/13/22 01:16 74 97 06/13/22 01:11 68 97 06/13/22 01:06 70 97 06/13/22 01:01 66 97 06/13/22 00:56 68 96 06/13/22 00:51 71 97 06/13/22 00:46 69 97 06/13/22 00:41 71 97 06/13/22 00:36 73 97 06/13/22 00:31 87 98 06/13/22 00:26 76 98 06/13/22 00:21 78 99 06/13/22 00:16 93 H 98 06/13/22 00:11 90 98 06/13/22 00:01 18 06/13/22 00:01 36.8 C 18 06/13/22 00:06 96 H 97 06/13/22 00:01 98 06/13/22 00:01 89 06/13/22 00:01 88 113/63 06/12/22 23:53 91 H 97 06/12/22 23:48 82 97 06/12/22 23:43 84 97 06/12/22 23:38 88 97 06/12/22 23:33 83 98 06/12/22 23:28 83 97 06/12/22 23:23 81 98 06/12/22 23:18 89 98 06/12/22 23:13 89 98 06/12/22 23:08 89 98 06/12/22 23:03 88 98 06/12/22 22:58 93 H 98 06/12/22 22:53 90 98 06/12/22 22:48 87 98 06/12/22 22:43 82 99 06/12/22 22:38 91 H 98 06/12/22 22:33 82 99 06/12/22 22:28 83 99 06/12/22 22:23 80 99 06/12/22 22:18 78 98 06/12/22 22:13 78 98 06/12/22 22:08 82 99 06/12/22 22:03 75 98 06/12/22 21:58 73 98 06/12/22 21:53 77 99 06/12/22 21:48 72 97 06/12/22 21:43 73 98 06/12/22 21:38 76 99 06/12/22 21:33 74 98 06/12/22 21:28 74 98 06/12/22 21:23 76 98 06/12/22 21:18 79 99 06/12/22 21:13 79 99 06/12/22 21:08 81 99 06/12/22 21:03 83 98 06/12/22 20:58 86 98 06/12/22 20:53 86 98 06/12/22 20:48 89 98 06/12/22 20:43 91 H 98 06/12/22 20:38 85 97 06/12/22 20:33 84 98 06/12/22 20:28 81 98 06/12/22 20:23 92 H 98 06/12/22 20:18 80 98 06/12/22 20:13 88 98 06/12/22 20:08 85 98 06/12/22 20:03 87 98 06/12/22 19:58 86 97 06/12/22 19:53 85 98 06/12/22 19:48 91 H 98 06/12/22 19:43 84 98 06/12/22 19:38 86 98 <Tia Lynn MD - Last Filed: 06/13/22 07:59> Co-Signing Physician Notes Resident Physician Supervision Note: I interviewed and examined the patient. Discussed with Dr. Salguero and agree with findings and plan as documented in the note. Any exceptions or clarifications are listed here: 32 y/o PP1 s/p c/b severe pre-eclampsia, now just come off of mag. Feeling well, no s/s PET. VSS, exam benign and wnl. Will repeat CMP at noon as Cr has actually slowly been increasing while on mag but never mag tox and always had excellent UOP. Encouraged to hydrate. Aware will need to monitor BPs and potentially add meds if indicated for this. Documented By: Tia Lynn MD Resident Activity Tracking <Marko Salguero, DO - Last Filed: 06/13/22 07:42> Resident Involvement: Resident Care Provided Care Provided: OB Delivery
[2022-06-13] MEDS: IBUPROFEN 600 MG TAB PO PRN ×2 (12:21→17:10)
[2022-06-13 13:23] LABS: Alanine Aminotransferase 72 U/L (7-52); Albumin Globulin Ratio 1.1 (0.9-2); Albumin Level 3.1 gm/dl (3.4-5.0); Alkaline Phosphatase 105 U/L (34-104); Anion Gap 5 (3-11); BUN Creatinine Ratio 13.1 (10-20); Bilirubin,Total 0.2 mg/dl (0.2-1.0); Blood Urea Nitrogen 11 mg/dl (6-23); Calcium 6.8 mg/dl (8.5-10.1); Carbon Dioxide 26 mmol/L (21-32); Chloride 107 mmol/L (98-107); Creatinine Clr Calc Pharmacy 113.1 ml/min; Est GFR (African American) 105.8 ml/min; Est GFR (Non-African American) 91.3 ml/min; Globulin 2.7 gm/dl (2.5-4.0); Glucose 71 mg/dl (70-99(Fasting)); Sodium 138 mmol/L (136-145); Total Protein 5.8 gm/dl (6.0-8.3)
[2022-06-13 15:25] LABS: Potassium 4.2 mmol/L (3.5-5.1)
[2022-06-13] MEDS ORDERED: bisacodyL 5 MG TABEC PO SCH (20:00)
[2022-06-13] MEDS: DOCUSATE SODIUM 100 MG CAP PO SCH (20:07)
[2022-06-14] MEDS ORDERED: bisacodyL 10 MG SUPP PR PRN
[2022-06-14] MEDS: IBUPROFEN 600 MG TAB PO PRN ×2 (00:23→04:46)
--- NOTE | 2022-06-14 07:14 | Obstetrical Progress Note ---
Date of Service <Marko RaderAngeles Salguero DO - Last Filed: 06/14/22 08:24> June 14, 2022 Assessment & Plan <Marko RaderAngeles Salguero DO - Last Filed: 06/14/22 08:24> (1) Encounter for care and examination after delivery: - Feels well today. Eating well, voiding well, ambulating well. - Pain well controlled with prn pain meds - Routine care -- OOB, ambulation, diet progression as tolerated - After discharge will have 6 week follow-up with Dr. Nath. - Labs are improving besides creatine is slightly rising. Will recheck labs at noon (2) Severe pre-eclampsia: - Will check CMP this AM - exam benign and wnl. no s/s PET - Patient is off mag - BP has been normal. Encouraged to continue to hydrate - If CMP this morning is continuing to get better than can be D/C today. <Velma Person MD, FACOG - Last Filed: 06/14/22 08:58> (1) Encounter for care and examination after delivery: (2) Severe pre-eclampsia: Subjective <Marko RaderAngeles Salguero DO - Last Filed: 06/14/22 08:24> Ambulation: ambulating normally Voiding: no voiding problems Passing Gas:: Yes Diet Tolerance:: regular diet Lochia:: Small Feeding Type:: breast feeding Current Pain Level(1-10): 2 Patient is a 32 y/o female who is now PPD # 2 following spontaneous vaginal delivery + IOP at 40 weeks. Reports feeling well overall this morning. Mild abdominal cramping & 2/10 pain well managed on analgesics. Voiding well. Tolerating meals overnight and able to ambulate some. Able to pass gas and has had a normal bowel movement. Has some persistent lochia with some improvement this morning. Currently breast feeding. Physical Exam <Marko Junior Salguero DO - Last Filed: 06/14/22 08:24> General: Alert, oriented. No acute distress. Cardiac: Regular rate and rhythm, no murmurs/rubs/gallops. Respiratory: Clear to auscultation bilaterally a/p, no wheezes/rales/rhonchi. No increased work of breathing. Symmetrical chest rise. No respiratory distress. Abdomen: Soft, nontender, nondistended. Bowel sounds present. Uterus: Uterine fundus firm, palpable 4 cm below umbilicus. Lower Extremities: No lower extremity edema or swelling. No deep calf pain. Sharmin's negative bilaterally. Results & Data ([facility]) <Marko Salguero DO - Last Filed: 06/14/22 08:24> Vital Signs (Past 12 Hours) Vital Signs Temp Pulse Resp BP Pulse Ox O2 Del Method 06/14/22 04:50 36.8 C 80 17 130/78 96 Room Air 06/13/22 23:45 36.9 C 70 16 134/79 97 Room Air 06/13/22 19:45 36.9 C 72 17 128/73 96 Room Air <Velma Person MD, FACOG - Last Filed: 06/14/22 08:58> Co-Signing Physician Notes Resident Physician Supervision Note: I was present with Dr. Salguero during the history and exam. I discussed the case with the resident and agree with the findings and plan as documented in the note. Any exceptions or clarifications are listed here: [None] Documented By: Velma Person MD, FACOG Resident Activity Tracking <Marko Salguero DO - Last Filed: 06/14/22 08:24> Resident Involvement: Resident Care Provided Care Provided: OB Delivery
[2022-06-14] MEDS: PRENATAL VITAMIN 1 TAB PO SCH (07:46)
[2022-06-14] MEDS: DOCUSATE SODIUM 100 MG CAP PO SCH (07:46)
[2022-06-14] MEDS: FERROUS SULFATE 325 MG TAB PO SCH (07:46)
[2022-06-14 08:40] LABS: Albumin Globulin Ratio 1.3 (0.9-2); Albumin Level 3.4 gm/dl (3.4-5.0); BUN Creatinine Ratio 14.7 (10-20); Bilirubin,Total 0.2 mg/dl (0.2-1.0); Calcium 7.8 mg/dl (8.5-10.1); Creatinine Clr Calc Pharmacy 126.7 ml/min; Est GFR (African American) 121.4 ml/min; Est GFR (Non-African American) 104.7 ml/min; Globulin 2.6 gm/dl (2.5-4.0)
--- NOTE | 2022-06-16 16:06 | Delivery Summary ---
DATE OF SERVICE: 06/12/2022 PROCEDURE: Normal spontaneous vaginal delivery with second-degree laceration repair and right labial laceration repair. SURGEON: Shaka Nath MD. PREOPERATIVE DIAGNOSES: 1. Severe preeclampsia. 2. Term . POSTOPERATIVE DIAGNOSES: 1. Severe preeclampsia. 2. Term . 3. Status post delivery. ESTIMATED BLOOD LOSS: 300 mL DRAINS: Continuous lactated Ringer. URINE OUTPUT: Per Gibson catheter. COMPLICATIONS: None. FINDINGS: Viable with weight of 6 pounds 5 ounces with Apgars of 8 and 9 at one and five min utes respectively. HOSPITAL COURSE: The patient is a 32-year-old admitted for induction of labor. She was diagnosed wi th preeclampsia with severe features started soon after being admitted and was started on magnesium p er regular protocol. The patient was started on oxytocin per regular protocol as well as also had a cervical ripening Gibson placed. The patient progressed in labor to approximately 5-6 cm, at which ti me she was noted to have recurrent decelerations and the Pitocin was discontinued. Oxytocin was later restarted and the patient progressed slowly in labor to complete-complete, +2 to 3 station, at which time she felt the urge to push and pushed over approximately 5-6 contractions to achieve deliv siddharth. DESCRIPTION OF PROCEDURE: The patient progressed to 10 cm dilated, 100% effaced, positive 2-3 statio n, pushed over intact perineum with epidural anesthesia and delivered a viable with weight an d Apgars as noted above. Head of the delivered in ALFA position, restituted to right transver se. Nuchal cord x2 was noted, which was easily reduced. Body and shoulders quickly followed. Neona te was delivered to the maternal abdomen and was noted to be vigorous soon after delivery, one minute delayed cord clamping was initiated, which the cord was double clamped and cut. was taken t o the waiting nursery staff for care, but was still noted to be vigorous with good Apgars. Attention was then turned to delivery of placenta, which was delivered intact, 3-vessel cord, gentle cord traction. On inspection of the perineum, vagina, cervix, there was noted to be a small second-d egree perineal laceration, which extended up to the right labia. The second-degree laceration was re paired with 3-0 Vicryl continuous running stitch using a traditional crown stitch method. The labial laceration repaired in interrupted stitch of 3-0 Vicryl. Needle, sponge, and instrument counts were correct at the completion of the case. Both mother and stable in the immediate post-deliver y period. Job ID: [id number]
== END 2022-06-14 13:20 | disposition home or self-care (01) | DRG 807 ==
LOC: 4S1 07:49 → 4E2 06-13 09:04